=== PATIENT | female | born 1980 | race Caucasian/White ===

== ENCOUNTER 2016-07-07 05:27 | Observation (INO) | payer BC, MEDICAID ==
--- NOTE | 2016-07-07 05:43 | ED PDOC ---
Arrival/HPI - General Historian: EMS - History of Present Illness Time/Duration: Other (tonight) Symptom Onset: Gradual Symptom Course: Unchanged Activities at Onset: Light Context: Street - General Time Seen by Provider: 07/07/16 05:39 - History of Present Illness Narrative History of Present Illness (Text): 07/07/16 05:42 Jenelle Winslow is a 36 year old female who presents to the emergency department brought in by EMS after she was found lying on the ground presumable intoxicated today. Pt is drowsy but arousable, cursing, and refusing to answer questions. Limited HPI and ROS due to patient's altered mental status. ( Juan Luis Godfrey) Past Medical History - Provider Review Nursing Documentation Reviewed: Yes - Psychiatric Hx Substance Use: No - Surgical History Hx Section: Yes Family/Social History - Physician Review Nursing Documentation Reviewed: Yes Family/Social History: No Known Family HX Hx Alcohol Use: Yes Hx Substance Use: No Hx Substance Use Treatment: No Allergies/Home Meds Allergies/Adverse Reactions: Allergies Penicillins Adverse Reaction (Verified 07/07/16 05:45) RASH Home Medications: Home Meds Medication Instructions Recorded Confirmed Unobtainable 07/07/16 07/07/16 Review of Systems - Review of Systems Systems not reviewed;Unavailable: Intoxicated Physical Exam Vital Signs Reviewed: Yes Temperature: Afebrile Blood Pressure: Normal Pulse: Regular Respiratory Rate: Normal Appearance: Positive for: Well-Appearing, Non-Toxic, Comfortable Pain Distress: None Mental Status: Positive for: other (Drowsy but arousable) - Systems Exam Head: Present: Atraumatic, Normocephalic Pupils: Present: PERRL Extroacular Muscles: Present: EOMI Conjunctiva: Present: Normal Mouth: Present: Moist Mucous Membranes Neck: Present: Normal Range of Motion Respiratory/Chest: Present: Clear to Auscultation, Good Air Exchange. No: Respiratory Distress, Accessory Muscle Use Cardiovascular: Present: Regular Rate and Rhythm, Normal S1, S2. No: Murmurs Abdomen: Present: Normal Bowel Sounds. No: Tenderness, Distention, Peritoneal Signs Upper Extremity: Present: Normal Inspection. No: Cyanosis, Edema Lower Extremity: Present: Normal Inspection. No: Edema Neurological: Present: GCS=15, CN II-XII Intact, Speech Normal Skin: Present: Warm, Dry, Normal Color. No: Rashes Psychiatric: Present: Alert Vital Signs Temp Pulse Resp BP Pulse Ox 07/07/16 13:05 82 18 118/78 98 07/07/16 09:13 102 H 18 104/58 L 07/07/16 07:49 100 H 18 91/56 L 98 07/07/16 05:44 97.8 F 115 H 18 134/76 98 Medical Decision Making - EKG Interpretation Interpreted by ED Physician: Yes Type: 12 lead EKG ED Course and Treatment: 07/07/16 05:43 Impression: 36 year old female found lying in the street, presumedly intoxicated today. Plan: -- Labs, alcohol level -- Reassess and disposition Progress Notes: (Juan Luis Godfrey) - EKG Interpretation EKG Interpretation (Text): 07/07/16 06:48 NSR@ 76 no acute changes (Juan Luis Godfrey) - Medication Orders Current Medication Orders: Discontinued Medications Lorazepam (Ativan) Confirm Administered Dose 2 mg .ROUTE .STK-MED ONE Stop: 07/07/16 14:55 ED OBSERVATION Date of observation admission: 07/07/16 Time of observation admission: 06:00 - Observation admission statement Patient is being placed in observation because:: alcohol intoxication (Juan Luis Godfrey) - Goals of Observation Goals of observation are:: observe for sobriety/any signs of withdrawal (Juan Luis oGdfrey) - Progress Note Progress Note: 07/07/16 07:00 Case signed out to me by Dr. Godfrey pending labs/reassessment/final disposition. Patient resting comfortably in no acute distress. 07/07/16 12:45 On reevaluation, patient has no slurred speech, has steady gait, and denies pain or discomfort. Patient is not tremulous or hypereflexive. She admits to drinking last night with a friend. Denies suicidal ideation or homicidal idaetion. Patient states she wishes to go home and says that she will walk home. Patient is clinically sober. She has been offered counseling for alcohol abuse. She states she will follow up with her PMD instead. Risks of excessive alcohol use were discussed. (Tatiana Miller) 07/07/16 06:51 Case endorsed to .Pending labs/reassess/final disposition (Juan Luis Godfrey) - Scribe Statement The provider has reviewed the documentation as recorded by the Scribe - Scribe Statement Catarina Tinoco (Juan Luis Godfrey) Provider Attestation: All medical record entries made by the Scribe were at my direction and personally dictated by me. I have reviewed the chart and agree that the record accurately reflects my personal performance of the history, physical exam, medical decision making, and the department course for this patient. I have also personally directed, reviewed, and agree with the discharge instructions and disposition. (Juan Luis Godfrey) Disposition/Present on Arrival - Present on Arrival Any Indicators Present on Arrival: No History of DVT/PE: No History of Uncontrolled Diabetes: No Urinary Catheter: No History Surgical Site Infection Following: None - Disposition Have Diagnosis and Disposition been Completed?: No Disposition Time: 07:00 - Disposition Diagnosis: Alcohol intoxication Disposition: HOME/ ROUTINE Condition: GOOD
[2016-07-07 05:44] VITALS: BMI 32.5
[2016-07-07 05:45] VITALS: RESP 18; TEMP 97.8; O2SAT 98
[2016-07-07 07:20] LABS: HEMATOCRIT 43.2 % (36.0-48.0); MEAN CELL VOLUME 98.2 fL (80.0-105.0); MEAN CORPUSCULAR HEMOGLOBIN 33.6 pg (25.0-35.0); MEAN CORPUSCULAR HGB CONC 34.3 g/dl (31.0-37.0); MEAN PLATELET VOLUME 10.3 fl (7.0-11.0); RED CELL DISTRIBUTION WIDTH 13.5 % (11.5-14.5); WHITE BLOOD COUNT 8.1 10^3/ul (4.5-11.0)
[2016-07-07 07:25] LABS: ALB/GLOB RATIO 1.1 (1.1-1.8); ALKALINE PHOSPHATASE 87 U/L (38-133); ALT/SGPT 35 U/L (7-56); AST/SGOT 26 U/L (15-39); BILIRUBIN,TOTAL 0.4 mg/dL (0.2-1.3); BLOOD UREA NITROGEN 9 mg/dL (7-21); CALCIUM 8.9 mg/dL (8.4-10.5); CARBON DIOXIDE 25 mmol/L (21-33); CHLORIDE 109 mmol/L (98-107); GFR AFRICAN-AMERICAN > 60; GLUCOSE,RANDOM 109 mg/dL (70-110); POTASSIUM 3.9 mmol/L (3.6-5.0); SODIUM 145 mmol/L (132-148); TOTAL PROTEIN 8.6 g/dL (5.8-8.3)
--- NOTE | 2016-07-07 12:14 | CARD ---
APPROVED REPORT EKG Measurement Heart [id number] <Conclusion> Normal sinus rhythm Normal ECG
[2016-07-07 13:28] VITALS: BP 118/78; PULSE 82
== END 2016-07-07 13:06 | disposition home or self-care (01) ==
LOC: ED 05:27 → EROBSV 06:00
PROVIDERS: ADMIT Emergency Medicine; ATTEND Emergency Medicine
DX: F10.129 Alcohol abuse with intoxication, unspecified (principal); Y90.8 Blood alcohol level of 240 mg/100 ml or more
CPT/HCPCS: 36415; 80053; 85027; 93005; 99284; G0378; G0480

== ENCOUNTER 2016-11-11 18:34 | Emergency (ER) | payer BC, MEDICAID ==
[2016-11-11 19:07] VITALS: BP 113/84; PULSE 75; RESP 16; TEMP 98.7; BMI 30.9
--- NOTE | 2016-11-11 20:25 | ED PDOC ---
Arrival/HPI - General Chief Complaint: Eye Problem Time Seen by Provider: 11/11/16 20:21 Historian: Patient - History of Present Illness Narrative History of Present Illness (Text): 11/11/16 21:06 36-year-old female presents today with right eye redness and swelling. Patient states 4 days ago she was cleaning a house with cats. Patient states she is allergic to cats. Patient states her eye started to become itchy at that time and she was rubbing it. Patient states 2 days ago she also was using a oil tank car cleaner that she thinks the mist man got into her eye which then irritated the eye even more. Patient presents today with worsening swelling and erythema of the right upper eye with tenderness over the medial aspect. Patient states she thinks she may have a stye but she is not sure. She denies trauma or injury. Denies fevers or chills. Denies blurred vision. Denies headaches. No other complaints Time/Duration: Other (4 days) Symptom Onset: Gradual Symptom Course: Worsening Quality: Aching Severity Level: 3 Past Medical History - Provider Review Nursing Documentation Reviewed: Yes - Travel History Have you recently traveled outside [place] w/in the past 3 mons?: No - Infectious Disease Hx of Infectious Diseases: None - Cardiac Hx Cardiac Disorders: No - Pulmonary Hx Respiratory Disorders: No - Neurological Hx Neurological Disorder: No - HEENT Hx HEENT Disorder: No - Renal Hx Renal Disorder: No - Endocrine/Metabolic Hx Endocrine Disorders: No - Hematological/Oncological Hx Blood Disorders: No - Integumentary Hx Dermatological Disorder: No - Musculoskeletal/Rheumatological Hx Musculoskeletal Disorders: No - Gastrointestinal Hx Gastrointestinal Disorders: No - Genitourinary/Gynecological Hx Genitourinary Disorders: No - Psychiatric Hx Psychophysiologic Disorder: No Hx Substance Use: No - Surgical History Hx Section: Yes (x3) - Anesthesia Hx Anesthesia: No Hx Anesthesia Reactions: No Hx Malignant Hyperthermia: No Family/Social History - Physician Review Nursing Documentation Reviewed: Yes Family/Social History: Unknown Family HX Smoking Status: Smoker Currrent Status Unknown Hx Alcohol Use: Yes Hx Substance Use: No Hx Substance Use Treatment: No Allergies/Home Meds Allergies/Adverse Reactions: Allergies Penicillins Adverse Reaction (Verified 11/11/16 19:07) RASH Review of Systems - Review of Systems Constitutional: absent: Fatigue, Fevers Eyes: Eye Pain, Other (eye swelling). absent: Vision Changes, Photophobia Respiratory: absent: SOB, Cough Cardiovascular: absent: Chest Pain Gastrointestinal: absent: Abdominal Pain, Nausea, Vomiting Musculoskeletal: absent: Arthralgias Skin: Pruritis. absent: Rash Neurological: absent: Headache, Dizziness Physical Exam Vital Signs Reviewed: Yes Vital Signs Temp Pulse Resp BP Pulse Ox 11/11/16 20:42 16 98 11/11/16 19:07 98.7 F 75 16 113/84 97 11/11/16 19:06 98.7 F 75 16 113/84 97 Temperature: Afebrile Blood Pressure: Normal Pulse: Regular Respiratory Rate: Normal Appearance: Positive for: Well-Appearing, Non-Toxic, Comfortable Pain Distress: None Mental Status: Positive for: Alert and Oriented X 3 - Systems Exam Head: Present: Atraumatic, Swelling (+ right upper eyelid swelling with slight erythema; + ttp over the Medial aspect of the upper eyelid. ) Pupils: Present: PERRL Extroacular Muscles: Present: EOMI Conjunctiva: Present: Normal Mouth: Present: Moist Mucous Membranes Neck: Present: Normal Range of Motion Respiratory/Chest: Present: Clear to Auscultation Cardiovascular: Present: Regular Rate and Rhythm Neurological: Present: GCS=15, Speech Normal Skin: Present: Warm, Dry, Normal Color Psychiatric: Present: Alert, Oriented x 3 Medical Decision Making ED Course and Treatment: 11/11/16 21:11 36-year-old female with a right upper eyelid swelling and erythema worsening over the past 4 days. pt non toxic well appearing; no distress. stable vitals. Patient with tenderness across the medial aspect of the upper eyelid. ? hordeolum We'll cover the patient prophylactically for periorbital cellulitis with clindamycin as the patient is allergic to penicillin. We will add tobramycin ointment. Advised warm compresses. Advised follow-up with the eye doctor within the next 2 days. Advised me to return if symptoms worsen or persist or if new concerning symptoms develop: I discussed orbital cellulitis with the patient and advised immediate return if patient develops any pain with eye movement or worsening of her current symptoms. Patient verbalizes understanding of discharge instructions and need for immediate followup. pt left with rx. called phone number; spoke with fiance; he will have the patient call er when she gets home. Impression: Periorbital cellulitis Clindamycin 1 tablet 3 times daily 7 days Tobramycin and apply 3 times a day to the affected area Benadryl every 6 hours as needed for itch Follow-up with the eye doctor within the next 2 days Follow-up with primary care physician within the next 2 days Return if symptoms worsen persist or if new concerning symptoms develop: High fevers, increasing pain, increasing redness, increasing swelling, pain with eye movement. 11/11/16 21:19 pt returned my phone call; rx's electronically submitted to [facility] - Medication Orders Current Medication Orders: Discontinued Medications Clindamycin HCl (Cleocin) 300 mg PO STAT STA PRN Reason: Protocol Stop: 11/11/16 20:24 Last Admin: 11/11/16 20:41 Dose: 300 mg Diphenhydramine HCl (Benadryl) 25 mg PO ONCE ONE Stop: 11/11/16 20:25 Last Admin: 11/11/16 20:41 Dose: 25 mg Disposition/Present on Arrival - Present on Arrival Any Indicators Present on Arrival: No History of DVT/PE: No History of Uncontrolled Diabetes: No Urinary Catheter: No History of Decub. Ulcer: No History Surgical Site Infection Following: None - Disposition Have Diagnosis and Disposition been Completed?: Yes Diagnosis: Periorbital cellulitis Disposition: HOME/ ROUTINE Disposition Time: 20:20 Patient Plan: Discharge Condition: GOOD Discharge Instructions (ExitCare): Cellulitis (ED) Additional Instructions: Clindamycin 1 tablet 3 times daily 7 days Tobramycin and apply 3 times a day to the affected area Benadryl every 6 hours as needed for itch Follow-up with the eye doctor within the next 2 days Follow-up with primary care physician within the next 2 days Return if symptoms worsen persist or if new concerning symptoms develop: High fevers, increasing pain, increasing redness, increasing swelling, pain with eye movement. Prescriptions: Clindamycin [Cleocin] 300 mg PO TID #21 cap DiphenhydrAMINE [Benadryl] 25 mg PO Q6H #20 cap Tobramycin 0.3% [Tobrex 0.3% Ophth Oint] 1 appl OD TID #1 tube Referrals: Donald Gallardo MD [Staff Provider] - Follow up with primary Donna Elias MD [Staff Provider] - Follow up with primary Forms: [employer] (French), WORK NOTE
[2016-11-11 20:42] VITALS: O2SAT 98
== END 2016-11-11 20:42 | disposition home or self-care (01) ==
LOC: ED 18:34
DX: L03.213 Periorbital cellulitis (principal)